=== PATIENT | male | born 1950 ===

== ENCOUNTER 2020-05-22 15:00 | Outpatient (REF) | payer MEDICARE, MEDICAID, SELFPAY ==
[2020-05-22 13:42] LABS: Abs Immature Grans 0.02 10^3/uL (0.0-0.06); Absolute Basophil Count 0.03 10^3/uL (0.0-0.2); Absolute Eosinophil Count 0.26 10^3/uL (0.0-0.7); Absolute Lymphocyte Count 1.68 10^3/uL (1.2-3.4); Absolute Monocyte Count 1.05 10^3/uL (0.1-0.8); Absolute Neutrophil Count 5.82 10^3/uL (1.2-6.7); Basophils % 0.3; Eosinophils % 2.9; HCT 39.5 % (40.0-50.0); Immature Grans % 0.2; MCH 31.6 pg (27.0-33.0); MCHC 32.9 % (32.0-36.0); MCV 96.1 fL (80-95); MPV 9.5 fL (8.0-11.0); Monocytes % 11.9; Neutrophils % 65.7; Nucleated RBC 0 %; Platelet Count 356 10^3/uL (130-400); RBC 4.11 10^6/uL (4.36-5.78); RDW-SD 49.3 fL; WBC 8.86 10^3/uL (4.4-10.8)
[2020-05-22 14:19] LABS: ALT 41 U/L (16-63); AST 23 U/L (15-37); Albumin 3.3 g/dL (3.4-5.0); Alkaline Phosphatase 108 U/L (46-116); Anion Gap 7.9 mmol/L (3-11); BUN 14 mg/dL (7-18); Bilirubin, Total 0.3 mg/dL (0.2-1.0); C-Reactive Protein 3.06 mg/dL (0.0-0.3); CO2 30.1 mmol/L (21.0-32.0); CREATININE 0.98 mg/dL (0.70-1.30); Calcium 9.4 mg/dL (8.5-10.1); Chloride 102 mmol/L (98-107); Glucose 92 mg/dL (74-106); Potassium 4.2 mmol/L (3.5-5.1); Sodium 140 mmol/L (136-145); Total Protein 7.6 g/dL (6.4-8.2)
[2020-05-22 14:23] LABS: ESR 78 mm/hr (1-20)
[2020-05-22 14:31] LABS: Calculated LDL 90 mg/dL (<100); Cholesterol 159 mg/dL (<200); HDL Cholesterol 54 mg/dL (40-60); Triglyceride 78 mg/dL (<150)
[2020-05-22 15:12] LABS: Hemoglobin A1C 5.5 % (<5.7)
[2020-05-22 21:23] LABS: Rheumatoid Factor <8.6 IU/mL (<12.0)
[2020-05-22 22:34] LABS: PSA, Screening 1.2 ng/mL (0.0-4.5)
[2020-05-23 11:05] LABS: Cyclic Citrullinated Peptide <2.5 U/mL (<5.0)
[2020-05-23 11:45] LABS: Lyme Ab w Rflx to Lyme Confirm Negative (Negative)
[2020-05-23 12:53] LABS: Uric Acid 5.8 mg/dL (3.5-7.2)
[2020-05-23 14:53] LABS: ANA Interpretation Negative (Negative)
[2020-05-24 00:30] LABS: Anaplasma phagocytophilum Negative (Negative); B. miyamotoi PCR Negative (Negative); Babesia divergens/MO-1 Negative (Negative); Babesia duncani Negative (Negative); Babesia microti Negative (Negative); Ehrlichia chaffeensis Negative (Negative); Ehrlichia ewingii/canis Negative (Negative); Ehrlichia muris eauclairensis Negative (Negative)
[2020-05-24 19:50] LABS: Ferritin 326 ng/mL (26-388); Vitamin B12 437 pg/mL (193-986)
== END 2020-05-22 15:20 ==
LOC: NCHCN 15:00
PROVIDERS: Visit Provider Nurse Practitioner Family
DX: D64.9 Anemia, unspecified (principal); M10.9 Gout, unspecified; R79.89 Other specified abnormal findings of blood chemistry; M25.59 Pain in other specified joint; Z12.5 Encounter for screening for malignant neoplasm of prostate
CPT/HCPCS: 80053; 80061; 84153; 85652; 86200; 87798; 82607; 82728; 83036; 83735; 84443; 84550; 85025; 86038; 86140; 86431; 86618

== ENCOUNTER 2020-07-04 20:02 | Outpatient (REF) | payer MEDICARE, MEDICAID, SELFPAY ==
[2020-07-04 12:47] LABS: C-Reactive Protein < 0.05 mg/dL (0.0-0.3)
[2020-07-04 15:57] LABS: ESR 11 mm/hr (<or=20)
== END 2020-07-04 20:03 | disposition home or self-care (01) ==
LOC: NCHCN 20:02
PROVIDERS: Visit Provider Nurse Practitioner Family
DX: M25.59 Pain in other specified joint (principal)
CPT/HCPCS: 85652; 86140

== ENCOUNTER 2020-08-10 14:26 | Outpatient (REF) | payer MEDICARE, MEDICAID, SELFPAY ==
[2020-08-10 19:49] LABS: C-Reactive Protein 0.07 mg/dL (0.0-0.3)
[2020-08-10 19:52] LABS: ESR 8 mm//hr (0-20)
[2020-08-10 19:53] LABS: Abs Immature Grans 0.03 10^3/uL (0.0-0.06); Absolute Basophil Count 0.02 10^3/uL (0.0-0.2); Absolute Eosinophil Count 0.05 10^3/uL (0.0-0.7); Absolute Lymphocyte Count 0.78 10^3/uL (1.2-3.4); Absolute Neutrophil Count 7.09 10^3/uL (1.2-6.7); Basophils % 0.2; Eosinophils % 0.6; HCT 43.4 % (40.0-50.0); HGB 14.2 g/dL (13.5-17.5); Immature Grans % 0.4; Lymphocytes % 9.4; MCHC 32.7 % (32.0-36.0); MCV 100.9 fL (80-95); MPV 9.5 fL (8.0-11.0); Monocytes % 3.6; Neutrophils % 85.8; Nucleated RBC 0 %; Platelet Count 240 10^3/uL (130-400); RDW 14.4 % (11.8-14.1); RDW-SD 53.4 fL; WBC 8.27 10^3/uL (4.4-10.8)
== END 2020-08-10 14:27 | disposition home or self-care (01) ==
LOC: LBN 14:26
PROVIDERS: Visit Provider Nurse Practitioner Family
DX: M35.3 Polymyalgia rheumatica (principal)
CPT/HCPCS: 85652; 85025; 86140

== ENCOUNTER 2020-12-28 11:49 | Outpatient (REF) | payer MEDICARE, MEDICAID, SELFPAY ==
[2020-12-28 16:39] LABS: C-Reactive Protein 0.14 mg/dL (0.0-0.3)
== END 2020-12-28 11:50 | disposition home or self-care (01) ==
LOC: LBN 11:49
PROVIDERS: Visit Provider Nurse Practitioner Family
DX: M35.3 Polymyalgia rheumatica (principal)
CPT/HCPCS: 86140

== ENCOUNTER 2021-02-22 15:47 | Outpatient (REF) | payer MEDICARE, MEDICAID, SELFPAY ==
[2021-02-22 16:09] LABS: C-Reactive Protein 0.81 mg/dL (0.0-0.3)
== END 2021-02-22 15:48 | disposition home or self-care (01) ==
LOC: LBN 15:47
PROVIDERS: Visit Provider Nurse Practitioner Family
DX: M35.3 Polymyalgia rheumatica (principal)
CPT/HCPCS: 86140

== ENCOUNTER 2021-05-07 18:51 | Outpatient (REF) | payer MEDICARE, MEDICAID, SELFPAY ==
[2021-05-07 21:36] LABS: HCT 42.8 % (40.0-50.0); HGB 14.2 g/dL (13.5-17.5); MCH 32.6 pg (27.0-33.0); MCHC 33.2 % (32.0-36.0); MCV 98.2 fL (80-95); Platelet Count 255 10^3/uL (130-400); RBC 4.36 10^6/uL (4.36-5.78); RDW-SD 46.4 fL; WBC 7.64 10^3/uL (4.4-10.8)
[2021-05-07 22:12] LABS: Vitamin B12 438 pg/mL (193-986)
[2021-05-07 22:15] LABS: Folate > 20.0 ng/mL (8.6-20.0)
== END 2021-05-07 18:52 | disposition home or self-care (01) ==
LOC: NCHCN 18:51
PROVIDERS: PCP Nurse Practitioner Family; Visit Provider Nurse Practitioner Family
DX: M35.3 Polymyalgia rheumatica (principal); D64.9 Anemia, unspecified
CPT/HCPCS: 85027; 82607; 82746; 86140

== ENCOUNTER 2021-07-18 12:17 | Outpatient (REF) | payer MEDICARE, MEDICAID, SELFPAY ==
[2021-07-18 14:33] LABS: C-Reactive Protein 0.55 mg/dL (0.0-0.3)
== END 2021-07-18 12:18 | disposition home or self-care (01) ==
LOC: LBN 12:17
PROVIDERS: PCP Nurse Practitioner Family; Visit Provider Nurse Practitioner Family
DX: M35.3 Polymyalgia rheumatica (principal)
CPT/HCPCS: 86140

== ENCOUNTER 2021-08-16 13:50 | Outpatient (REF) | payer MEDICARE, MEDICAID, SELFPAY ==
[2021-08-16 20:43] LABS: C-Reactive Protein 0.68 mg/dL (0.0-0.3)
== END 2021-08-16 13:51 | disposition home or self-care (01) ==
LOC: LBN 13:50
PROVIDERS: PCP Nurse Practitioner Family; Visit Provider Nurse Practitioner Family
DX: M35.3 Polymyalgia rheumatica (principal)
CPT/HCPCS: 86140

== ENCOUNTER 2021-09-12 21:20 | Outpatient (REF) | payer MEDICARE, MEDICAID, SELFPAY ==
[2021-09-12 21:41] LABS: C-Reactive Protein 0.51 mg/dL (0.0-0.3)
== END 2021-09-12 21:21 | disposition home or self-care (01) ==
LOC: NCHCN 21:20
PROVIDERS: PCP Nurse Practitioner Family; Visit Provider Nurse Practitioner Family
DX: M35.3 Polymyalgia rheumatica (principal)
CPT/HCPCS: 86140

== ENCOUNTER 2021-10-31 14:01 | Outpatient (REF) | payer MEDICARE, MEDICAID, SELFPAY ==
[2021-10-31 20:22] LABS: Abs Immature Grans 0.02 10^3/uL (0.0-0.06); Absolute Basophil Count 0.02 10^3/uL (0.0-0.2); Absolute Lymphocyte Count 1.57 10^3/uL (1.2-3.4); Absolute Monocyte Count 0.83 10^3/uL (0.1-0.8); Absolute Neutrophil Count 4.17 10^3/uL (1.2-6.7); Basophils % 0.3; Eosinophils % 4.3; HCT 40.7 % (40.0-50.0); HGB 13.6 g/dL (13.5-17.5); Immature Grans % 0.3; Lymphocytes % 22.7; MCH 32.5 pg (27.0-33.0); MCHC 33.4 % (32.0-36.0); MCV 97 fL (80-95); MPV 9.9 fL (8.0-11.0); Neutrophils % 60.4; Platelet Count 250 10^3/uL (130-400); RBC 4.18 10^6/uL (4.36-5.78); RDW-SD 46.2 fL; WBC 6.91 10^3/uL (4.4-10.8)
[2021-10-31 20:31] LABS: ALT 29 U/L (16-63); AST 32 U/L (15-37); Albumin 3.5 g/dL (3.4-5.0); Alkaline Phosphatase 92 U/L (46-116); Anion Gap 7.3 mmol/L (3-11); BUN 23 mg/dL (7-18); Bilirubin, Total 0.2 mg/dL (0.2-1.0); C-Reactive Protein 0.43 mg/dL (0.0-0.3); CO2 28.7 mmol/L (21.0-32.0); CREATININE 1.1 mg/dL (0.70-1.30); Chloride 103 mmol/L (98-107); Glucose 101 mg/dL (74-106); Sodium 139 mmol/L (136-145); Total Protein 7.2 g/dL (6.4-8.2)
== END 2021-10-31 14:02 | disposition home or self-care (01) ==
LOC: LBN 14:01
PROVIDERS: PCP Nurse Practitioner Family; Visit Provider Nurse Practitioner Family
DX: R79.82 Elevated C-reactive protein (CRP) (principal); Z79.1 Long term (current) use of non-steroidal anti-inflammatories (NSAID); M35.3 Polymyalgia rheumatica
CPT/HCPCS: 80053; 85025; 86140

== ENCOUNTER 2022-02-11 08:16 | Outpatient (REF) | payer MEDICARE, MEDICAID, SELFPAY | END 2022-02-11 08:17 | disposition home or self-care (01) | LOC: LBN 08:16 | PROVIDERS: PCP Nurse Practitioner Family; Visit Provider Nurse Practitioner Family | DX: R79.82 Elevated C-reactive protein (CRP) (principal) | CPT/HCPCS: 86140 ==

== ENCOUNTER 2022-06-19 14:12 | Outpatient (REF) | payer MEDICARE, MEDICAID, SELFPAY ==
[2022-06-19 21:07] LABS: Abs Immature Grans 0.02 10^3/uL (0.0-0.06); Absolute Basophil Count 0.03 10^3/uL (0.0-0.2); Absolute Eosinophil Count 0.21 10^3/uL (0.0-0.7); Absolute Lymphocyte Count 1.54 10^3/uL (1.2-3.4); Absolute Monocyte Count 0.75 10^3/uL (0.1-0.8); Basophils % 0.4; Eosinophils % 2.9; HCT 38.1 % (40.0-50.0); HGB 12.9 g/dL (13.5-17.5); Immature Grans % 0.3; MCH 32.7 pg (27.0-33.0); MCHC 33.9 % (32.0-36.0); MCV 97 fL (80-95); MPV 10.6 fL (8.0-11.0); Monocytes % 10.2; Neutrophils % 65.2; Platelet Count 279 10^3/uL (130-400); RBC 3.94 10^6/uL (4.36-5.78); RDW 13.1 % (11.8-14.1); RDW-SD 46.7 fL; WBC 7.35 10^3/uL (4.4-10.8)
[2022-06-19 21:20] LABS: ALT 27 U/L (16-63); AST 31 U/L (15-37); Albumin 3.6 g/dL (3.4-5.0); Alkaline Phosphatase 106 U/L (46-116); Anion Gap 7.2 mmol/L (3-11); BUN 18 mg/dL (7-18); Bilirubin, Total 0.2 mg/dL (0.2-1.0); CO2 29.8 mmol/L (21.0-32.0); Calcium 9.7 mg/dL (8.5-10.1); Chloride 105 mmol/L (98-107); Estimated GFR 80.97 (mL/min/1.73m2); Glucose 107 mg/dL (74-106); Potassium 4.1 mmol/L (3.5-5.1); Sodium 142 mmol/L (136-145); Total Protein 7.5 g/dL (6.4-8.2)
== END 2022-06-19 14:13 | disposition home or self-care (01) ==
LOC: LBN 14:12
PROVIDERS: PCP Nurse Practitioner Family; Visit Provider Nurse Practitioner Family
DX: Z79.1 Long term (current) use of non-steroidal anti-inflammatories (NSAID) (principal); M35.3 Polymyalgia rheumatica
CPT/HCPCS: 80053; 85025

== ENCOUNTER 2022-09-11 17:45 | Outpatient (REF) | payer MEDICARE, MEDICAID, SELFPAY ==
[2022-09-11 15:26] LABS: Abs Immature Grans 0.02 10^3/uL (0.0-0.06); Absolute Basophil Count 0.04 10^3/uL (0.0-0.2); Absolute Eosinophil Count 0.29 10^3/uL (0.0-0.7); Absolute Lymphocyte Count 1.63 10^3/uL (1.2-3.4); Absolute Monocyte Count 0.92 10^3/uL (0.1-0.8); Absolute Neutrophil Count 5.46 10^3/uL (1.2-6.7); Basophils % 0.5; Eosinophils % 3.5; HCT 38.5 % (40.0-50.0); HGB 12.6 g/dL (13.5-17.5); Immature Grans % 0.2; Lymphocytes % 19.5; MCH 31.6 pg (27.0-33.0); MCHC 32.7 % (32.0-36.0); MCV 97 fL (80-95); MPV 9.3 fL (8.0-11.0); Neutrophils % 65.3; Platelet Count 296 10^3/uL (130-400); RBC 3.99 10^6/uL (4.36-5.78); RDW 13.5 % (11.8-14.1); RDW-SD 47.8 fL; WBC 8.36 10^3/uL (4.4-10.8)
== END 2022-09-11 17:46 | disposition home or self-care (01) ==
LOC: LBN 17:45
PROVIDERS: PCP Family Medicine; Visit Provider Nurse Practitioner Family
DX: M35.3 Polymyalgia rheumatica (principal); Z79.1 Long term (current) use of non-steroidal anti-inflammatories (NSAID)
CPT/HCPCS: 85025

== ENCOUNTER 2022-10-09 15:44 | Outpatient (REF) | payer MEDICARE, MEDICAID, SELFPAY ==
[2022-10-09 20:54] LABS: ALT 30 U/L (16-63); AST 29 U/L (15-37); Albumin 3.4 g/dL (3.4-5.0); Alkaline Phosphatase 110 U/L (46-116); Anion Gap 5.1 mmol/L (3-11); BUN 21 mg/dL (7-18); Bilirubin, Total 0.2 mg/dL (0.2-1.0); C-Reactive Protein 1.66 mg/dL (0.0-0.3); CO2 29.9 mmol/L (21.0-32.0); CREATININE 1.1 mg/dL (0.70-1.30); Calcium 9.3 mg/dL (8.5-10.1); Chloride 105 mmol/L (98-107); Estimated GFR 71.77 (mL/min/1.73m2); Glucose 101 mg/dL (74-106); Potassium 4.2 mmol/L (3.5-5.1); Sodium 140 mmol/L (136-145); Total Protein 7.9 g/dL (6.4-8.2)
== END 2022-10-09 15:45 | disposition home or self-care (01) ==
LOC: NCHCN 15:44
PROVIDERS: PCP Family Medicine; Visit Provider Nurse Practitioner Family
DX: M35.3 Polymyalgia rheumatica (principal); Z79.1 Long term (current) use of non-steroidal anti-inflammatories (NSAID)
CPT/HCPCS: 80053; 86140

== ENCOUNTER 2023-06-08 18:38 | Outpatient (REF) | payer MEDICARE, MEDICAID, SELFPAY ==
[2023-06-08 22:05] LABS: Abs Immature Grans 0.02 10^3/uL (0.0-0.06); Absolute Basophil Count 0.05 10^3/uL (0.0-0.2); Absolute Eosinophil Count 0.27 10^3/uL (0.0-0.7); Absolute Lymphocyte Count 1.64 10^3/uL (1.2-3.4); Absolute Monocyte Count 0.85 10^3/uL (0.1-0.8); Absolute Neutrophil Count 4.48 10^3/uL (1.2-6.7); Basophils % 0.7; Eosinophils % 3.7; HCT 39.7 % (40.0-50.0); HGB 13.5 g/dL (13.5-17.5); Immature Grans % 0.3; Lymphocytes % 22.4; MCH 32.5 pg (27.0-33.0); MCV 95 fL (80-95); MPV 9.6 fL (8.0-11.0); Monocytes % 11.6; Neutrophils % 61.3; Platelet Count 259 10^3/uL (130-400); RBC 4.16 10^6/uL (4.36-5.78); RDW 13.1 % (11.8-14.1); RDW-SD 45.8 fL; WBC 7.31 10^3/uL (4.4-10.8)
[2023-06-08 22:23] LABS: ALT 34 U/L (16-63); AST 28 U/L (15-37); Albumin 3.5 g/dL (3.4-5.0); Alkaline Phosphatase 99 U/L (46-116); Anion Gap 7.5 mmol/L (3-11); BUN 24 mg/dL (7-18); Bilirubin, Total 0.3 mg/dL (0.2-1.0); CO2 29.5 mmol/L (21.0-32.0); CREATININE 1.1 mg/dL (0.70-1.30); Calcium 9.5 mg/dL (8.5-10.1); Chloride 104 mmol/L (98-107); Estimated GFR 71.77 (mL/min/1.73m2); Glucose 100 mg/dL (74-106); Potassium 4.1 mmol/L (3.5-5.1); Sodium 141 mmol/L (136-145); Total Protein 7.7 g/dL (6.4-8.2)
== END 2023-06-08 18:39 | disposition home or self-care (01) ==
LOC: NCHCN 18:38
PROVIDERS: PCP Family Medicine; Visit Provider Internal Medicine Rheumatology
DX: M35.3 Polymyalgia rheumatica (principal); Z79.899 Other long term (current) drug therapy
CPT/HCPCS: 80053; 85025; 86140